=== PATIENT | female | born 1955 | race Hispanic/Latino ===

== ENCOUNTER 2019-06-20 12:59 | Emergency (ER) | payer MEDICARE, OTHER ==
[~2019-06-20] VITALS: Ht 157.5 cm; Wt 77.1 kg
--- OUTSIDE RECORDS SUMMARY | 2019-06-20 13:02 | XMS REPORT ---
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 Allergies, Adverse Reactions, Alerts Allergy Name Allergy Type Status Severity Reaction(s) Onset Date Inacti ve Date Treating Clinician Comments No Known Contrast Allergies DA Active U 2006-08-08 0 0:00:00 No Known Drug Allergies DA Active U 2006-08-08 00:00 :00 No Known Food Allergies DA Active U 2006-08-08 00:00 :00 No Known Other Allergies DA Active U 2006-08-08 00:0 0:00 Medications This patient has no known medications. Results Test Description Test Time Test Comments Text Results Atomic Results Result Comments - XR HIP BI W/PELVIS 2019-03-18 14:46:00 FAX: Joselyn Dwyer [phone] [place]: St: REG -- Name: LEROY ARANGO [facility] : 1955 Age/S: 63/F [address] Unit #: [id number] Loc: [place] [address] Phys: Joselyn Tarango MD Acct: [id number] Dis Date: Status: REG CLI PHONE #: [phone] Exam Date: 03/18/2019 1415 FAX #: [phone] Reason: PRIMARY GENERALIZED (OSTEO)ARTHRITIS,OSTEOPENIA EXAMS: CPT CODE: [id number] XR HIP BI W/PELVIS 82663 EXAM: - XR HIP BI W/PELVIS HISTORY: PRIMARY GENERALIZED (OSTEO)ARTHRITIS,OSTEOPENIA COMPARISON: None available time of interpretation. FINDINGS: AP and frog-leg lateral views of both hips and single view of the pelvis are provided. No fracture or dislocation. Hip joint spaces are preserved. No soft tissue findings are apparent. IMPRESSION: No fracture, dislocation, or significant degenerative change at 1446 Reported and signed by: Marek Champagne MD CC: Joselyn Tarango MD Technologist: Janessa Thurman; STUDENT 2ND YEAR Trnscrd Date/Time/By: 03/18/2019 (2448) : By: [email or web address] PAGE 1 Signed Report FAX: Joselyn Dwyer [phone] [place]: St: REG -- Name: LEROY ARANGO [facility] : 1955 Age/S: 63/F [address] Unit #: [id number] Loc: [place] [address] Phys: Joselyn Tarango MD Acct: [id number] Dis Date: Status: REG CLI PHONE #: [phone] Exam Date: 03/18/2019 1415 FAX #: [phone] Reason: PRIMARY GENERALIZED (OSTEO)ARTHRITIS,OSTEOPENIA EXAMS: CPT CODE: [id number] XR HIP BI W/PELVIS 83392 <Continued> Orig Print D/T: S: 03/18/2019 (6715) PAGE 2 Signed Report - XR KNEE 3 V LT 2019-03-18 14:45:00 FAX: Joselyn Dwyer [phone] [place]: St: REG -- Name: LEROY ARANGO [facility] : 1955 Age/S: 63/F [address] Unit #: [id number] Loc: [place] [address] Phys: Joselyn Tarango MD Acct: [id number] Dis Date: Status: REG CLI PHONE #: [phone] Exam Date: 03/18/2019 1415 FAX #: [phone] Reason: PRIMARY GENERALIZED (OSTEO)ARTHRITIS,OSTEOPENIA EXAMS: CPT CODE: [id number] XR KNEE 3 V LT 81362 EXAM: - XR KNEE 3 V LT HISTORY: PRIMARY GENERALIZED (OSTEO)ARTHRITIS,OSTEOPENIA COMPARISON: None available time of interpretation. FINDINGS: Weightbearing Frontal, oblique, and lateral views of the left knee are provided. No fracture. Severe medial compartment joint space narrowing is noted. Tricompartmental osteophytes are noted. No significant knee joint effusion. No soft tissue findings are apparent. IMPRESSION: Tricompartmental osteoarthrosis, severe in the medial compartment. at 1445 Reported and signed by: Ihsan RICO, Marek CC: Joselyn Tarango MD Technologist: Janessa Thurman; STUDENT 2ND YEAR Trnscrd Date/Time/By: 03/18/2019 (8834) : By: [email or web address] PAGE 1 Signed Report FAX: Joselyn Dwyer [phone] [place]: St: REG -- Name: LEROY ARANGO [facility] [place] : 1955 Age/S: 63/F [address] Unit #: [id number] Loc: [place] [address] Phys: Joselyn Tarango MD Acct: [id number] Dis Date: Status: REG CLI PHONE #: [phone] Exam Date: 03/18/2019 1415 FAX #: [phone] Reason: PRIMARY GENERALIZED (OSTEO)ARTHRITIS,OSTEOPENIA EXAMS: CPT CODE: [id number] XR KNEE 3 V LT 65424 <Continued> Orig Print D/T: S: 03/18/2019 (4960) PAGE 2 Signed Report
[2019-06-20] MEDS ORDERED: ASPIRIN 81 MG CHEW TAB PO ONE (13:30)
[2019-06-20 13:48] LABS: BASOPHILS % 0.8 % (0.0-1.0); EOSINOPHILS # (AUTO) 0.1 (0.0-0.4); EOSINOPHILS % 2.7 % (0.0-6.0); HEMATOCRIT 35.7 % (34.2-44.1); HEMOGLOBIN 11.2 g/dL (12.0-16.0); LYMPHOCYTES % 41.3 % (18.0-39.1); MEAN CORPUSCULAR HEMOGLOBIN 24.9 pg (28-32); MEAN CORPUSCULAR HGB CONC 31.4 g/dL (31-35); MEAN CORPUSCULAR VOLUME 79.5 fL (81-99); MONOCYTES # (AUTO) 0.3 (0.2-0.8); MONOCYTES % 6.5 % (4.4-11.3); NEUTROPHILS # (AUTO) 2.3 (2.1-6.9); NEUTROPHILS % 48.5 % (38.7-80.0); PLATELET COUNT 288 x10e3/uL (140-360); RED BLOOD COUNT 4.49 x10e6/uL (3.6-5.1); RED CELL DISTRIBUTION WIDTH 15.3 % (11.7-14.4)
[2019-06-20 14:12] LABS: ALANINE AMINOTRANSFERASE 20 IU/L (0-55); ALBUMIN/GLOBULIN RATIO 1.1 (0.8-2.0); ALKALINE PHOSPHATASE 96 IU/L (40-150); ANION GAP 11.9 mmol/L (8-16); BLOOD UREA NITROGEN 14 mg/dL (7-26); BUN/CREATININE RATIO 20 (6-25); CALCIUM 9.3 mg/dL (8.4-10.2); CARBON DIOXIDE 26 mmol/L (22-29); CHLORIDE 105 mmol/L (98-107); CREATINE KINASE 265 IU/L (29-168); CREATININE, SERUM 0.69 mg/dL (0.57-1.11); EST GLOMERULAR FILTRATION RATE > 60 ML/MIN (60-); GLUCOSE 113 mg/dL (74-118); POTASSIUM 3.9 mmol/L (3.5-5.1); SODIUM 139 mmol/L (136-145)
--- NOTE | 2019-06-20 14:55 | Diagnostic Imaging Report ---
Examination: MRI BRAIN WO CONTRAST History: Loss of control of the lower extremities. Comparison studies: None Technique: Sagittal T2; axial DWI, FLAIR, GRE or SWI, T1, Coronal FLAIR. Intravenous contrast: None Findings: Scalp: No abnormal signal. No masses. Bone marrow: Normal in signal intensity. Brain volume: Adequate for age. No volume loss. Ventricles: Normal in size and configuration. Ex vacuo dilatation is most probably related to central volume loss. Extra-axial spaces: No abnormalities. Parenchyma: There are many scattered punctate areas of T2/FLAIR hyperintensity in the periventricular and subcortical white matter, nonspecific. No masses, hemorrhage, or acute vascular insults. Suprasellar and sellar region: No abnormalities. Craniocervical junction: No abnormalities. The foramen magnum is patent. No Chiari malformations. Vessels: Normal flow-voids in the arteries and sinuses. Additional findings:Mild inflammatory mucosal thickening of the left maxillary sinus IMPRESSION: No acute intracranial abnormalities. Central volume loss Mild chronic microvascular ischemic change. Signed by: Dr. Solange Rodriguez M.D. on 06/20/2019 2:51 PM
--- NOTE | 2019-06-20 15:21 | Diagnostic Imaging Report ---
EXAMINATION: CHEST SINGLE (PORTABLE) INDICATION: Weakness COMPARISON: None FINDINGS: LINES/TUBES:None LUNGS:The lungs are well-inflated. No focal consolidation or pulmonary edema. PLEURA:No pleural effusion or pneumothorax. MEDIASTINUM:The cardiomediastinal silhouette appears normal in size and shape. BONES/SOFT TISSUES:No acute osseous injury. ABDOMEN:No free air under the diaphragm. IMPRESSION: No focal pneumonia or pulmonary edema. Signed by: Mariana Elias MD on 06/20/2019 3:18 PM
[2019-06-20 16:42] VITALS: BP 120/70
== END 2019-06-20 17:06 | disposition home or self-care (01) ==
LOC: ER 12:59
DX: R20.2 Paresthesia of skin (principal); R51 Headache; G45.9 Transient cerebral ischemic attack, unspecified
CPT/HCPCS: 36415; 70551; 71045; 80053; 82550; 82553; 84484; 85025; 93005; 99284

== ENCOUNTER → 2019-07-09 | Outpatient (CLI) | payer MEDICARE | LOC: RAD 08:42 | PROVIDERS: ATTEND Psychiatry & Neurology Clinical Neurophysiology | DX: G45.8 Other transient cerebral ischemic attacks and related syndromes (principal) | CPT/HCPCS: 93306; 93880 ==

== ENCOUNTER 2022-06-20 09:45 | Observation (INO) | payer MEDICARE ==
[~2022-06-20] VITALS: Ht 157.5 cm; Wt 80.4 kg
[~2022-06-20 09:45] MED LIST: ACETAMINOPHEN 1000 MG/100 ML 100 ML IV ONE; ACTOS15 MG PO; ASPIRIN81 MG PO; CRESTOR10 MG PO; FARXIGA10 MG PO; IBUPROFEN800 MG PO; IRON PO; LEVOTHYROXINE75 MCG PO; METFORMIN HCL500 MG PO; ROPIVACAINE 246.25 MG, EPINEPHRINE HCL 1:1000 1ML 0.5 MG, CLONIDINE HCL 0.08 MG, KETORO... INJ ONE; ZETIA10 MG PO
[2022-06-20] MEDS ORDERED: DEXAMETHASONE SOD PHOS 10 MG/1 ML VIAL ONE ×2 (10:20→11:54)
[2022-06-20] MEDS ORDERED: CELECOXIB 200 MG CAP ONE (10:20)
[2022-06-20] MEDS ORDERED: CEFAZOLIN SODIUM 2 GM ONE (10:21)
[2022-06-20] MEDS ORDERED: LACTATED RINGER'S 1,000 ML ONE (10:21)
[2022-06-20] MEDS ORDERED: GABAPENTIN 300 MG CAP ONE (10:21)
[2022-06-20] MEDS ORDERED: Vancomycin IV 1,000 MG ONE (11:40)
[2022-06-20] MEDS ORDERED: SODIUM CHLORIDE 0.9% 500ML 500 ML ONE (11:41)
[2022-06-20] MEDS ORDERED: TRANEXAMIC ACID 20 ML ONE (11:41)
[2022-06-20] MEDS ORDERED: ROPIVACAINE 0.5% 5 MG/ML 30 ML SDV ONE (11:54)
[2022-06-20] MEDS ORDERED: DEXAMETHASONE SOD PHOS INJ 4 MG/ML SDV ONE (12:33)
[2022-06-20] MEDS ORDERED: KETOROLAC TROMETHAMINE 30 MG/ML VIAL ONE (12:33)
[2022-06-20] MEDS ORDERED: PHENYLEPHRINE HCL 1% 10 MG/ML VIAL ONE (12:33)
[2022-06-20] MEDS ORDERED: ONDANSETRON HCL INJ 2MG/ML 2ML 2 MG/ML VIAL ONE (12:33)
[2022-06-20] MEDS ORDERED: PROPOFOL IV EMULSION 10 MG/ML 20 ML VIAL ONE (12:33)
[2022-06-20] MEDS ORDERED: POVIDONE IODINE 0.05% 0.05 % ML PO ONE (12:33)
[2022-06-20] MEDS ORDERED: SEVOFLURANE INHAL SOLN 250 ML PEN BTL ONE (12:33)
[2022-06-20] MEDS ORDERED: LIDOCAINE HCL 2% LOCAL INJ 5 ML SDV VIAL INJ ONE (12:33)
[2022-06-20] MEDS ORDERED: MIDAZOLAM HCL 2 MG/2 ML VIAL ONE (12:34)
[2022-06-20] MEDS ORDERED: FENTANYL CITRATE/PF 100MCG/2 ML INJ ONE (12:34)
[2022-06-20] MEDS ORDERED: DOCUSATE SODIUM 100 MG CAP PO PRN (13:45)
[2022-06-20] MEDS ORDERED: ONDANSETRON HCL INJ 2MG/ML 2ML 2 MG/ML VIAL IV PRN (13:45)
[2022-06-20] MEDS ORDERED: ACETAMINOPHEN 650 MG SUPP PR PRN (13:45)
[2022-06-20] MEDS ORDERED: HYDROCODONE/APAP 5MG-325MG TAB PO PRN (13:45)
[2022-06-20] MEDS ORDERED: DIPHENHYDRAMINE HCL INJ 50 MG/ML VIAL IV PRN (13:45)
[2022-06-20] MEDS: FENTANYL CITRATE/PF 100MCG/2 ML INJ ONE ×4 (14:18→14:49)
[2022-06-20] MEDS: HYDROMORPHONE 1MG/1ML INJ ONE ×3 (15:04→16:17)
[2022-06-20] MEDS: HYDROCODONE/APAP 7.5MG-325MG 1 EA TAB PO PRN (17:36)
[2022-06-20] MEDS ORDERED: HYDROCODONE/APAP 7.5MG-325MG 1 EA TAB ONE (17:36)
[2022-06-20 20:00] VITALS: BP 114/63; PULSE 96; RESP 16; TEMP 97.2; O2SAT 99
[2022-06-20 20:35] VITALS: BP 114/63; PULSE 96; RESP 16; TEMP 97.2; O2SAT 99
[2022-06-20] MEDS: CELECOXIB 200 MG CAP PO SCH (21:24)
[2022-06-20] MEDS: SODIUM CHLORIDE 0.9% 1000ML 1,000 ML IV SCH (21:25)
[2022-06-20] MEDS: ASPIRIN 325 MG TAB PO SCH (22:02)
[2022-06-21] VITALS: BP 96/54; PULSE 86; RESP 18; TEMP 97.2; O2SAT 97
[2022-06-21] MEDS: SODIUM CHLORIDE 0.9% 1000ML 1,000 ML IV SCH (02:20)
[2022-06-21] MEDS: HYDROCODONE/APAP 7.5MG-325MG 1 EA TAB PO PRN ×2 (04:25→08:44)
[2022-06-21 05:30] LABS: HEMATOCRIT 27.9 % (34.2-44.1); HEMOGLOBIN 8.6 g/dL (12.0-16.0)
[2022-06-21 05:47] LABS: ANION GAP 12.6 mmol/L (8-16); CALCIUM 8.5 mg/dL (8.4-10.2); CREATININE, SERUM 0.75 mg/dL (0.57-1.11); POTASSIUM 3.6 mmol/L (3.5-5.1)
[2022-06-21 06:15] VITALS: BP 113/49; PULSE 90; RESP 18; TEMP 97.4; O2SAT 98
[2022-06-21 06:54] VITALS: PULSE 82; RESP 18; O2SAT 96
[2022-06-21] MEDS ORDERED: LEVOTHYROXINE SODIUM 75 MCG TAB PO SCH (07:30)
[2022-06-21] MEDS ORDERED: METFORMIN HCL 500 MG TAB PO SCH (08:00)
[2022-06-21] MEDS: ASPIRIN 325 MG TAB PO SCH (08:01)
[2022-06-21] MEDS: CELECOXIB 200 MG CAP PO SCH (08:01)
[2022-06-21 08:53] VITALS: BP 105/67; PULSE 82; RESP 19; TEMP 98.5; O2SAT 100
[2022-06-21] MEDS ORDERED: PIOGLITAZONE HCL 15 MG TAB PO SCH (09:00)
[2022-06-21] MEDS ORDERED: ONDANSETRON HCL 4 MG ORAL DISINTEGRATING TAB PO PRN (12:30)
[2022-06-21] MEDS ORDERED: ACETAMINOPHEN 1000 MG/100 ML IV PRN (13:45)
== END 2022-06-21 12:30 | disposition home or self-care (01) ==
LOC: OR 09:45 → PACU V 13:40 → MED/SURG 19:19
PROVIDERS: ADMIT Specialist; ATTEND Specialist
DX: M17.12 Unilateral primary osteoarthritis, left knee (principal); E11.69 Type 2 diabetes mellitus with other specified complication; E78.2 Mixed hyperlipidemia; E03.9 Hypothyroidism, unspecified; Z01.812 Encounter for preprocedural laboratory examination; Z01.818 Encounter for other preprocedural examination; Z20.822 Contact with and (suspected) exposure to COVID-19; Z79.82 Long term (current) use of aspirin; Z79.84 Long term (current) use of oral hypoglycemic drugs; Z79.1 Long term (current) use of non-steroidal anti-inflammatories (NSAID); Z79.899 Other long term (current) drug therapy; Z68.32 Body mass index [BMI] 32.0-32.9, adult
CPT/HCPCS: 0223U; 27447; 36415 ×3; 71046; 73560; 80048; 82948 ×2; 85014; 85018; 86850; 86900; 86920; 94799; 97110; 97116 ×2; 97161; 97530; C1713 ×2; C1776 ×3; G0378 ×2; J0131; J0171; J0690 ×2; J1100 ×2; J1170; J1885; J2001; J2250; J2370; J2405; J2704; J2795; J3010; J3370; J7030; J7040; J7121